=== PATIENT | male | born 1975 ===

== ENCOUNTER 2019-07-23 07:25 | Outpatient (CLI) | payer OTHER ==
[2019-07-23] MEDS ORDERED: SIMVASTATIN5 MG PO (11:46)
== END 2019-07-23 08:41 | disposition home or self-care (01) ==
LOC: LAB 07:25
DX: D64.89 Other specified anemias (principal); E88.89 Other specified metabolic disorders; D68.8 Other specified coagulation defects; N39.0 Urinary tract infection, site not specified; Z22.322 Carrier or suspected carrier of Methicillin resistant Staphylococcus aureus; I49.8 Other specified cardiac arrhythmias; Z76.89 Persons encountering health services in other specified circumstances; M79.641 Pain in right hand; M79.642 Pain in left hand

== ENCOUNTER 2019-08-07 07:30 | Day surgery (SDC) | payer OTHER ==
[~2019-08-07 07:30] MED LIST: SIMVASTATIN5 MG PO
== END 2019-08-07 18:35 | disposition home or self-care (01) ==
LOC: CIR.AMB 07:30
DX: S83.512A Sprain of anterior cruciate ligament of left knee, initial encounter (principal); S83.282A Other tear of lateral meniscus, current injury, left knee, initial encounter
CPT/HCPCS: 29881; 29888; 20920; C1776